=== PATIENT | female | born 2000 | race Caucasian/White ===

== ENCOUNTER 2019-01-03 12:45 | Emergency (ER) | payer OTHER ==
[~2019-01-03] VITALS: Ht 162.6 cm; Wt 44.5 kg
[2019-01-03 13:13] LABS: Source, Urine Clean Catch
[2019-01-03 13:26] LABS: Bilirubin, Urine Neg (Neg); Glucose Qualitative, Urine Neg (Neg); Ketones, Urine Neg (Neg); Leukocyte Esterase, Urine 3+ (Neg); Urobilinogen, Urine NORM (Normal)
[2019-01-03 13:29] LABS: Blood, Urine 5+ (Neg); Nitrite, Urine Neg (Neg); Protein, Urine 4+ (Neg); Specific Gravity, Urine 1.015 (1.003-1.022); pH, Urine 6.5 (5.0-8.0)
[2019-01-03 13:38] LABS: Appearance, Urine Cloudy (Clear); Color, Urine Yellow (P-Yellow)
[2019-01-03 13:41] LABS: Bacteria Few /hpf; Red Blood Cells, Urine TNTC /hpf (0-2); Squamous Epithelial Cells Rare /hpf (Few)
[2019-01-03] MEDS ORDERED: CEPH500 PO (14:05)
[2019-01-05 07:07] LABS: CHLAMYDIA TRACHOMATIS, NAA Negative (Negative); NEISSERIA GONORRHOEAE, NAA Negative (Negative)
== END 2019-01-03 14:42 | disposition home or self-care (01) ==
LOC: ER 12:45
PROVIDERS: Physician Assistant
DX: N39.0 Urinary tract infection, site not specified (principal); F17.200 Nicotine dependence, unspecified, uncomplicated
CPT/HCPCS: 81001; 81025; 87086; 87491; 87591; 99283

== ENCOUNTER 2019-02-15 14:04 | Emergency (ER) | payer OTHER ==
[~2019-02-15] VITALS: Ht 162.6 cm; Wt 40.8 kg
[~2019-02-15 14:04] MED LIST: CEPH500 PO
[2019-02-15 15:12] LABS: Appearance, Urine Cloudy (Clear); Bilirubin, Urine Neg (Neg); Blood, Urine 3+ (Neg); Color, Urine Yellow (P-Yellow); Glucose Qualitative, Urine Neg (Neg); Ketones, Urine Neg (Neg); Leukocyte Esterase, Urine 3+ (Neg); Nitrite, Urine Neg (Neg); Protein, Urine 1+ (Neg); Specific Gravity, Urine 1.005 (1.003-1.022); Urobilinogen, Urine NORM (Normal); pH, Urine 6.5 (5.0-8.0)
[2019-02-15 15:18] LABS: Bacteria Many /hpf; Squamous Epithelial Cells Many /hpf (Few); White Blood Cells, Urine 25-50 /hpf (0-5)
[2019-02-15] MEDS ORDERED: Bactrim Ds Tab1 EACH PO (15:59)
== END 2019-02-15 16:04 | disposition home or self-care (01) ==
LOC: ER 14:04
PROVIDERS: Internal Medicine
DX: N30.00 Acute cystitis without hematuria (principal); F17.200 Nicotine dependence, unspecified, uncomplicated
CPT/HCPCS: 81001; 81025; 87077; 87086; 87186; 99283

== ENCOUNTER 2019-07-03 14:49 | Emergency (ER) | payer OTHER ==
[~2019-07-03] VITALS: Ht 162.6 cm; Wt 45.4 kg
[~2019-07-03 14:49] MED LIST changes: +Bactrim Ds Tab1 EACH PO
[2019-07-03 15:38] LABS: BASOPHILS ABSOLUTE AUTO 0.03 K/mm3 (0.00-0.23); BASOPHILS PERCENT AUTO 0 % (0-2); EOSINOPHILS ABSOLUTE AUTO 0.01 K/mm3 (0.00-0.68); EOSINOPHILS PERCENT AUTO 0 % (0-6); Hematocrit 39.7 % (33.0-51.0); Hemoglobin 12.9 g/dL (11.5-16.0); IMMATURE GRAN ABSOLUTE AUTO 0.02 K/mm3 (0.00-0.10); IMMATURE GRAN PERCENT AUTO 0 % (0-1); LYMPHOCYTES ABSOLUTE AUTO 1.99 K/mm3 (0.84-5.20); LYMPHOCYTES PERCENT AUTO 22 % (21-46); MONOCYTES ABSOLUTE AUTO 0.63 K/mm3 (0.16-1.47); MONOCYTES PERCENT AUTO 7 % (4-13); Mean Corpuscular HGB 30.4 pg (26.0-34.0); Mean Corpuscular HGB Conc 32.5 g/dL (31.5-36.5); Mean Corpuscular Volume 93 fL (80-100); Mean Platelet Volume 8.8 fL (9.1-12.4); NEUTROPHILS ABSOLUTE AUTO 6.35 K/mm3 (1.96-9.15); NEUTROPHILS PERCENT AUTO 70 % (41-73); Platelet Count 414 K/mm3 (150-400); RDW Coefficient Variation 13.3 % (11.7-14.2); RDW Standard Deviation 45.8 fL (35.1-46.3); Red Blood Cell Count 4.25 M/mm3 (3.80-5.20); White Blood Cell Count 9.03 K/mm3 (4.00-11.30)
[2019-07-03 16:04] LABS: Alanine Aminotransfer (ALT/SGP 19 U/L (12-78); Albumin, Blood 3.5 g/dL (3.4-5.0); Albumin/Globulin Ratio 0.9 (0.8-1.8); Alk Phos 55 U/L (50-136); Anion Gap 9 mmol/L (6-16); Aspartate Aminotrans (AST/SGOT 41 U/L (12-37); Bilirubin, Total 0.4 mg/dL (0.1-1.0); Blood Urea Nitrogen 14 mg/dL (8-24); CO2, Blood 23 mmol/L (21-32); Calcium, Blood 9.2 mg/dL (8.5-10.1); Chloride, Blood 104 mmol/L (98-108); Creatinine, Blood 0.58 mg/dL (0.40-1.00); Globulin, Blood 3.9 g/dL (2.2-4.0); Glomerular Filtration Rate >60 (60-); Glucose, Blood 98 mg/dL (70-99); Potassium, Blood 3.4 mmol/L (3.5-5.5); Sodium, Blood 136 mmol/L (136-145); Total Protein, Blood 7.4 g/dL (6.4-8.2)
[2019-07-03 17:12] LABS: Source, Urine Clean Catch
[2019-07-03 17:20] LABS: Bilirubin, Urine Neg (Neg); Blood, Urine Neg (Neg); Glucose Qualitative, Urine Neg (Neg); Ketones, Urine Neg (Neg); Leukocyte Esterase, Urine Neg (Neg); Nitrite, Urine Neg (Neg); Protein, Urine Neg (Neg); Urobilinogen, Urine NORM (Normal)
[2019-07-03 17:21] LABS: Appearance, Urine Clear (Clear); Color, Urine Yellow (P-Yellow)
== END 2019-07-03 18:21 | disposition home or self-care (01) ==
LOC: ER 14:49
PROVIDERS: Physician Assistant
DX: R11.2 Nausea with vomiting, unspecified (principal); R19.7 Diarrhea, unspecified; F17.200 Nicotine dependence, unspecified, uncomplicated
CPT/HCPCS: 36415; 80053; 81003; 81025; 84703; 85025; 96361; 96374; 99283-25; J2405; J7030

== ENCOUNTER 2020-05-13 19:19 | Emergency (ER) | payer OTHER | END 2020-05-13 20:10 | disposition left against medical advice (07) | LOC: ER 19:19 | DX: Z53.21 Procedure and treatment not carried out due to patient leaving prior to being seen by health care provider (principal) ==